=== PATIENT | female | born 2000 | race Caucasian/White ===

== ENCOUNTER 2020-12-17 07:29 | Emergency (ER) | payer OTHER | END 2020-12-17 10:20 | disposition home or self-care (01) | LOC: ER1 07:29 | DX: S80.01XA Contusion of right knee, initial encounter (principal); S60.812A Abrasion of left wrist, initial encounter; V49.40XA Driver injured in collision with unspecified motor vehicles in traffic accident, initial encounter; Y92.410 Unspecified street and highway as the place of occurrence of the external cause; Z23 Encounter for immunization | CPT/HCPCS: 73110; 90471; 90715; 99283 ==